=== PATIENT | female | born 1975 | race Caucasian/White ===

== ENCOUNTER 2021-11-21 13:34 | Emergency (ER) | payer SELFPAY ==
[~2021-11-21] VITALS: Ht 175.3 cm; Wt 144.7 kg
[2021-11-21 14:48] LABS: BACTERIA,URINE FEW /HPF (0-FEW)
[2021-11-21 14:49] LABS: WBC,URINE 0 /HPF (0-4)
--- NOTE | 2021-11-21 14:59 | RAD ---
EXAM: Chest, 2 views. HISTORY: Chest pain. Cough. COMPARISON: None. FINDINGS: 2 views of the chest are obtained. There is no infiltrate, pleural effusion or pneumothorax . There is a prominent cardiac silhouette. IMPRESSION: No acute pulmonary finding. Electronically signed by: Brenda Rodriguez MD (11/21/2021 2:56 PM) [id number]
[2021-11-21 15:18] LABS: INFLUENZA A PATIENT NEGATIVE (NEGATIVE); INFLUENZA B PATIENT NEGATIVE (NEGATIVE)
[2021-11-21 15:25] LABS: BASO # 0.1 x10^3/uL (0.0-0.2); BASO % 1 % (0-3); EOS # 0.1 x10^3/uL (0.0-0.7); EOS % 1 % (0-3); HEMATOCRIT 28.5 % (36.0-47.0); HEMOGLOBIN 9.1 g/dL (12.0-15.5); LYMPH # 1.1 x10^3/uL (1.0-4.8); LYMPH % 14 % (24-48); MEAN CORPUSCULAR HEMOGLOBIN 26 pg (25-35); MEAN CORPUSCULAR HGB CONC 32 g/dL (31-37); MEAN CORPUSCULAR VOLUME 82 fL (79-100); MONO # 0.7 x10^3/uL (0.0-1.1); MONO % 9 % (0-9); NEUT % 75 % (31-73); PLATELET COUNT 144 x10^3/uL (140-400); RED BLOOD COUNT 3.48 x10^6/uL (3.50-5.40); RED CELL DISTRIBUTION WIDTH 21.4 % (11.5-14.5)
[2021-11-21 15:32] LABS: CALCIUM 8.6 mg/dL (8.5-10.1); CREATININE 0.9 mg/dL (0.6-1.0); GFR 67.4; POTASSIUM 3.4 mmol/L (3.5-5.1)
[2021-11-21 15:38] LABS: ALBUMIN 2.9 g/dL (3.4-5.0); ALBUMIN/GLOBULIN RATIO 0.7 (1.0-1.7); TOTAL BILIRUBIN 4.8 mg/dL (0.2-1.0); TOTAL PROTEIN 7.1 g/dL (6.4-8.2)
[2021-11-21 16:05] LABS: FECAL OB PT NEGATIVE (NEG)
[2021-11-21 16:42] LABS: ANISOCYTOSIS MOD; HYPOCHROMIA SLIGHT; PLT ESTIMATE ADEQUATE (ADEQUATE)
[2021-11-21] MEDS ORDERED: IOHEXOL 300 MG/ML 100ML VIAL. IV ONE (17:00)
[2021-11-21] MEDS ORDERED: CONTRAST GIVEN. MC PRN (17:00)
[2021-11-21] MEDS ORDERED: IOHEXOL 240 MG/ML 50ML VIAL. PO ONE (17:00)
[2021-11-21 17:26] LABS: ACETAMIN < 2 mcg/ml (10-30)
--- NOTE | 2021-11-21 18:10 | RAD ---
EXAM: CT Abdomen and Pelvis with IV contrast CLINICAL HISTORY: Rectal bleeding, abdominal pain, history gastric bypass COMPARISON: none TECHNIQUE: Helical CT of the abdomen and pelvis was performed following the administration of intrave nous contrast. Axial, coronal and sagittal reformatted images were generated. PQRS compliance statement - One or more of the following individualized dose reduction techniques wer e utilized for this study: 1. Automated exposure control 2. Adjustment of the mA and/or kV according to patient size 3. Use of iterative reconstruction technique FINDINGS: Lower Chest: Small right and trace left pleural effusions. Abdomen and Pelvis: Hepatic hypoattenuation, fatty liver. Cholecystectomy clips are seen. No biliary duct dilatation. Spl een is unremarkable. Adrenal glands are normal. Pancreas is unremarkable. Symmetric nephrograms. No focal renal lesion. No hydronephrosis. No hydroureter. Bladder is unremarka ble. Uterus is unremarkable. A 9.1 x 6.2 cm left adnexal lesion is seen. An 8.2 x 5.1 cm right adnexal les ion is seen. No abdominal or pelvic ascites. No abdominal or pelvic lymphadenopathy. Thickening of the right colonic wall with right pericolonic infiltration. No small or large bowel dil atation. No bowel obstruction. Appendix is not seen. Changes of gastric bypass are seen. Bones: No aggressive osseous lesion. IMPRESSION: 1. Thickening of the right colonic wall with pericolonic infiltration possibly infectious or inflamm atory colitis. Following resolution of the acute process, colonoscopy is recommended as underlying co lonic mass can also have this appearance. 2. Bilateral adnexal masses are seen and can be further assessed by ultrasound. 3. Changes of gastric bypass are seen. 4. Hepatic hypoattenuation with fatty liver. Electronically signed by: Michelet Carter MD (11/21/2021 6:07 PM) [facility]
--- NOTE | 2021-11-21 18:13 | PHYS DOC ---
Past Medical History Additional Past Medical Histor: FIBROMYALGIA Past Surgical History: Cholecystectomy, , Gastric Bypass, Knee Replac ement Smoking Status: Never Smoker Alcohol Use: Heavy Additional Information: PATIENT STATES, "EVERY COUPLE OF WEEKS I WILL DRINK A 1/2 OF A LITER IN 2 WEEKS." General Adult EDM: Chief Complaint: FLU SYMPTOM HPI: HPI: Patient is a 46-year-old female who presents to the emergency department complaining of chest pains, abdominal pains, nausea, headaches, cough, congestion, body aches, fevers and chills at home. Patient reports she has been vaccinated for the COVID-19 virus and flu this season. Patient reports a past medical history of fibromyalgia, gastric bypass surgery 2010, gallbladder removal, bilateral knee replacements, C-sections, sinus surgery. Patient states that she was told by other people that have had gastric bypass that she may have a rupture with her surgery, patient states that she noticed blood in her stool 2 days ago. Patient reports her home meds are Zyrtec, Prevacid, and Zofran. Patient states she does not have a primary care physician as she moved here from [place] 4 months ago. Patient denies diaphoretic episodes, syncopal or near syncopal episodes, denies homicidal suicidal ideations, denies dizziness. Pat ient denies other physical complaints or physical concerns. Review of Systems: Review of Systems: 14 body systems of review of systems have been reviewed. See HPI for pertinent positives and negative responses, otherwise all other systems are negative, nonpertinent or noncontributory. Constitutional: Negative except as outlined in HPI above. Skin: Negative except as outlined in HPI above. Eyes: Negative except as outlined in HPI above. HENT: Negative except as outlined in HPI above. Respiratory: Negative except as outlined in HPI above. Cardiovascular: Negative except as outlined in HPI above. GI: Negative except as outlined in HPI above. : Negative except as outlined in HPI above. Musculoskeletal: Negative except as outlined in HPI above. Integument: Negative except as outlined in HPI above. Neurologic: Negative except as outlined in HPI above. Endocrine: Negative except as outlined in HPI above. Lymphatic: Negative except as outlined in HPI above. Psychiatric: Negative except as outlined in HPI above. Heart Score: C/O Chest Pain: Yes HEART Score for Chest Pain: HEART Score for Chest Pain Response (Comments) Value History Slighlty/Non-Suspicious 0 ECG Normal 0 Age >45 - < 65 1 Risk Factors >3 Risk Factors or Hx CAD 2 Troponin < Normal Limit 0 Total 3 Risk Factors: Risk Factors: DM, Current or recent (<one month) smoker, HTN, HLP, family history of CAD, obesity. Risk Scores: Score 0 - 3: 2.5% MACE over next 6 weeks - Discharge Home Score 4 - 6: 20.3% MACE over next 6 weeks - Admit for Clinical Observation Score 7 - 10: 72.7% MACE over next 6 weeks - Early Invasive Strategies Current Medications: Current Medications Medications (Trade) Dose Ordered Sig/Agusto Start Time Stop Time Status Last Admin Dose Admin Info (CONTRAST GIVEN -- Rx MONITORING) 1 each PRN DAILY PRN 11/21/21 17:00 11/23/21 16:59 Iohexol (Omnipaque 240 Mg/ml) 50 ml 1X ONCE 11/21/21 17:00 11/21/21 17:01 DC 11/21/21 17:00 50 ML Iohexol (Omnipaque 300 Mg/ml) 75 ml 1X ONCE 11/21/21 17:00 11/21/21 17:01 DC 11/21/21 17:00 75 ML Allergies: Allergies: Allergies Coded Allergies Type Severity Reaction Last Updated Verified Sulfa (Sulfonamide Antibiotics) Allergy Unknown 11/21/21 Yes cephalexin Allergy Unknown 11/21/21 Yes Physical Exam: PE: Constitutional: Well developed, well nourished, no acute distress, non-toxic appearance. 46-year-old female in no apparent distress. HENT: Normocephalic, atraumatic. Eyes: Conjunctiva normal, no discharge. Neck: Normal range of motion, no stridor. Cardiovascular: No cyanosis appreciated, distal cap refill less than 2 seconds. Regular rate and rhythm, heart sounds S1-S2 auscultation. Lungs & Thorax: Patient is in no respiratory distress, no audible adventitious lung sounds appreciated. Lung sounds clear to auscultation all lung prado, normal work of breathing. Abdomen: Generalized tenderness to palpation all quadrants, old well-healed surgical scars, round, patient BMI 47.1. Skin: Warm, dry, no erythema, no rash. Back: No tenderness, no deformities. Extremities: No tenderness, no cyanosis, no clubbing, ROM intact, no edema. Neurologic: Alert and oriented X 3, normal motor function, normal sensory function, no focal deficits noted. Psychologic: Affect normal, judgement normal, mood normal. Current Patient Data: Labs: Laboratory Tests Test 11/21/21 14:05 11/21/21 14:11 11/21/21 14:50 11/21/21 15:14 Urine Collection Type Unknown Urine Color (Auto) Yellow Urine Turbidity Hazy Urine pH (Auto) 5.5 (<5.0-8.0) Urine Specific [place] 1.010 (1.000-1.030) Urine Protein (Auto) Negative mg/dL (Negative) Urine Glucose (Auto)(UA) Negative mg/dL (Negative) Urine Ketones (Auto) Negative mg/dL (Negative) Urine Blood (Auto) Trace (Negative) Urine Nitrite Negative (Negative) Urine Bilirubin (Auto) Negative (Negative) Urine Urobilinogen (Auto) >12 mg/dL (Normal) Urine Leukocyte Esterase (Auto) Negative (Negative) Urine RBC 1-2 /HPF (0-2) Urine WBC 0 /HPF (0-4) Urine Squamous Epithelial Cells Few /LPF Urine Bacteria Few /HPF (0-FEW) Urine Mucus Slight /LPF POC Urine HCG, Qualitative Hcg negative (Negative) Influenza Type A Antigen Negative (NEGATIVE) Influenza Type B Antigen Negative (NEGATIVE) SARS-CoV-2 Antigen (Rapid) Negative (NEGATIVE) White Blood Count 8.0 x10^3/uL (4.0-11.0) Red Blood Count 3.48 x10^6/uL (3.50-5.40) L Hemoglobin 9.1 g/dL (12.0-15.5) L Hematocrit 28.5 % (36.0-47.0) L Mean Corpuscular Volume 82 fL (79-100) Mean Corpuscular Hemoglobin 26 pg (25-35) Mean Corpuscular Hemoglobin Concent 32 g/dL (31-37) Red Cell Distribution Width 21.4 % (11.5-14.5) H Platelet Count 144 x10^3/uL (140-400) Neutrophils (%) (Auto) 75 % (31-73) H Lymphocytes (%) (Auto) 14 % (24-48) L Monocytes (%) (Auto) 9 % (0-9) Eosinophils (%) (Auto) 1 % (0-3) Basophils (%) (Auto) 1 % (0-3) Neutrophils # (Auto) 6.0 x10^3/uL (1.8-7.7) Lymphocytes # (Auto) 1.1 x10^3/uL (1.0-4.8) Monocytes # (Auto) 0.7 x10^3/uL (0.0-1.1) Eosinophils # (Auto) 0.1 x10^3/uL (0.0-0.7) Basophils # (Auto) 0.1 x10^3/uL (0.0-0.2) Platelet Estimate Adequate (ADEQUATE) Hypochromasia Slight Anisocytosis Mod Sodium Level 139 mmol/L (136-145) Potassium Level 3.4 mmol/L (3.5-5.1) L Chloride Level 102 mmol/L (98-107) Carbon Dioxide Level 27 mmol/L (21-32) Anion Gap 10 (6-14) Blood Urea Nitrogen 5 mg/dL (7-20) L Creatinine 0.9 mg/dL (0.6-1.0) Estimated GFR (Cockcroft-Gault) 67.4 BUN/Creatinine Ratio 6 (6-20) Glucose Level 115 mg/dL (70-99) H Calcium Level 8.6 mg/dL (8.5-10.1) Total Bilirubin 4.8 mg/dL (0.2-1.0) H Aspartate Amino Transferase (AST) 121 U/L (15-37) H Alanine Aminotransferase (ALT) 53 U/L (14-59) Alkaline Phosphatase 103 U/L (46-116) Troponin I High Sensitivity 9 ng/L (4-50) Total Protein 7.1 g/dL (6.4-8.2) Albumin 2.9 g/dL (3.4-5.0) L Albumin/Globulin Ratio 0.7 (1.0-1.7) L Lipase 134 U/L (73-393) Acetaminophen Level < 2 mcg/ml (10-30) L Acetaminophen Last Dose Date Unknown Acetaminophen Last Dose Time Unknown Test 11/21/21 15:40 Stool Occult Blood Negative (NEG) Laboratory Tests 11/21/21 15:14 Laboratory Tests 11/21/21 15:14 Vital Signs: Vital Signs Date Time Temp Pulse Resp B/P (MAP) Pulse Ox O2 Delivery O2 Flow Rate FiO2 11/21/21 13:35 98.5 97 18 195/81 (119) 97 Room Air 98.5 EKG: EKG: EKG performed at 1413 by ED nursing staff shows a normal sinus rhythm without other ectopy, heart rate 94 bpm, TN interval point 158, QTc interval 0.508, no acute STEMI, no ACS, no acute ischemia appreciated, EKG interpreted by ED attending physician Dr. Bartholomew. Radiology/Procedures: Radiology/Procedures: REASON: Chest pain with cough PROCEDURE: CHEST PA & LATERAL EXAM: Chest, 2 views. HISTORY: Chest pain. Cough. COMPARISON: None. FINDINGS: 2 views of the chest are obtained. There is no infiltrate, pleural effusion or pneumothorax. There is a prominent cardiac silhouette. IMPRESSION: No acute pulmonary finding. Electronically signed by: Brenda Rodriguez MD (11/21/2021 2:56 PM) [id number] REASON: Rectal bleeding, abdominal pain, history gastric bypass PROCEDURE: CT ABD PELV W/ORAL&IV CONTRAST EXAM: CT Abdomen and Pelvis with IV contrast CLINICAL HISTORY: Rectal bleeding, abdominal pain, history gastric bypass COMPARISON: none TECHNIQUE: Helical CT of the abdomen and pelvis was performed following the administration of intravenous contrast. Axial, coronal and sagittal reformatted images were generated. PQRS compliance statement - One or more of the following individualized dose reduction techniques were utilized for this study: 1. Automated exposure control 2. Adjustment of the mA and/or kV according to patient size 3. Use of iterative reconstruction technique FINDINGS: Lower Chest: Small right and trace left pleural effusions. Abdomen and Pelvis: Hepatic hypoattenuation, fatty liver. Cholecystectomy clips are seen. No biliary duct dilatation. Spleen is unremarkable. Adrenal glands are normal. Pancreas is unremarkable. Symmetric nephrograms. No focal renal lesion. No hydronephrosis. No hydroureter. Bladder is unremarkable. Uterus is unremarkable. A 9.1 x 6.2 cm left adnexal lesion is seen. An 8.2 x 5.1 cm right adnexal lesion is seen. No abdominal or pelvic ascites. No abdominal or pelvic lymphadenopathy. Thickening of the right colonic wall with right pericolonic infiltration. No small or large bowel dilatation. No bowel obstruction. Appendix is not seen. [place] nges of gastric bypass are seen. Bones: No aggressive osseous lesion. IMPRESSION: 1. Thickening of the right colonic wall with pericolonic infiltration possibly infectious or inflammatory colitis. Following resolution of the acute process, colonoscopy is recommended as underlying colonic mass can also have this appearance. 2. Bilateral adnexal masses are seen and can be further assessed by ultrasound. 3. Changes of gastric bypass are seen. 4. Hepatic hypoattenuation with fatty liver. Electronically signed by: Michelet Puente MD (11/21/2021 6:07 PM) [facility] REASON: Evaluate adnexal masses PROCEDURE: PELVIS W/TV Pelvic ultrasound to include transabdominal and transvaginal imaging 11/21/2021 CLINICAL HISTORY: Adnexal mass seen on CT scan from earlier today. TECHNIQUE: Using the distended urinary bladder as a sonographic window, a real- time ultrasound examination of the pelvis was performed. Additionally in an attempt to better evaluate the uterus and adnexa, a transvaginal ultrasound study was performed. Multiple images were obtained. FINDINGS: The uterus is small and difficult to evaluate due to the presence of bilateral adnexal masses. It measures 5.7 x 4.7 x 2.2 cm in longitudinal, transverse, and AP dimensions. No focal abnormality of the uterus is definitely seen. The endometrial echo complex is difficult to visualize. It does not appear thickened on the patients CT scan. Oval-shaped anechoic structures with internal echoes are seen throughout both ovaries. These are consistent with hemorrhagic cysts or endometriomas. The right one measures 8.1 x 5.0 x 4.7 cm in size. The left one measures 8.7 x 5.9 x 5.1 cm in size. Normal color-flow to both ovaries is seen. A small amount of free fluid is seen. IMPRESSION: Probable hemorrhagic cysts versus endometriomas are seen involving both ovaries as discussed above. Electronically signed by: Marcial Yanez MD (11/21/2021 8:42 PM) [id number] DICTATED and SIGNED BY: MICHELET PUENTE MD DATE: 11/21/211758 Course & Med Decision Making: Course & Med Decision Making Pertinent Labs and Imaging studies reviewed. (See chart for details) 46-year-old female, vital signs reviewed, presents emergency department with multiple concerns. Will order blood pressure/cardiac/continuous pulse ox monitoring, insert saline lock, EKG, PA lateral chest, CBC, CMP, lipase, rapid flu and COVID testing, high-sensitivity troponin I, urinalysis assay, urine test, fecal occult blood. Fecal occult blood is negative, the patient's urine is not infected, she is not , high-sensitivity troponin I is negative, EKG is nonconcerning, PA lateral chest is nonconcerning, serum labs are nonconcerning. Will order CT abdomen pelvis with oral and IV contrast to evaluate abdominal discomfort. CT abdomen pelvis concerning for colitis infectious versus inflammatory process, also concerning for adnexal masses, radiologist recommended pelvic sono study. Patient is complaining of anxiety, asking for a 1 mg Ativan oral dose, will also give Tessalon Perles for cough. Pelvis sonogram concerning for ovarian cyst. Discussed findings with patient, strict follow-up with GI specialist, will give recommendation on discharge instructions, will start on Cipro/Flagyl regimen for colitis, discussed medications and side effects with patient, also discussed with patient strict follow-up with [employer]ICER for further evaluation of ovarian cyst. Will give recommendation for [facility] clinics/primary care physician offices for patient to establish primary care since patient reports she recently moved here from [place]. Discussed return to ER precautions and concerns, patient gave verbal understanding of and is amenable to ED discharge planning. Discussed with the patient all findings and diagnostic testing as well as the need to follow-up with their primary care provider for further evaluation and treatment or return to the ED if any new or worsening symptoms. Strict return precautions were also discussed at length, the patient voiced understanding and agreement with the discharge planning. The patient was nontoxic in appearance, in no apparent distress, and hemodynamically stable at the time of disposition. Molly Disclaimer: Molly Disclaimer: This electronic medical record was generated, in whole or in part, using a voice recognition dictation system. Departure Departure Impression: Primary Impression: Colitis Additional Impressions: Abnormal pelvic ultrasound Cough Viral syndrome Disposition: HOME / SELF CARE / HOMELESS Condition: GOOD Referrals: SUNNY ACOSTA MD, SCOTT S MD Patient Instructions: Colitis Additional Instructions: You were seen today in the emergency department for generalized aches and pains, abdominal pains, chest pains, concerns about your gastric bypass, cough. Your EKG and chest x-ray did not show any concerning findings, your lab work did not show any concerning findings that would require immediate hospitalization or intervention by a hospital specialist. Your urine was not infected. There was no blood in your stool. The CT scan did show concerning findings of an infection in your colon, as we discussed I am starting you on an antibiotic regimen, please take these medications as directed until complete. I have also writing a short regimen prescription for cough medication. As we discussed consider changing your Zyrtec allergy medication to Claritin to see if this helps with your allergy symptoms. Your flu and COVID tests were negative today. You did do show concerning findings of ovarian cysts, please follow-up with an [employer] OFFICER for ongoing investigation and evaluation of your ovarian cyst. You may consider seeing an [employer] PL[employer] OFFICER specialist Dr. Sunny Acosta. I have provided his in formation attached to this document. After your antibiotic regimen is complete, please consider making an appointment to see a GI specialist. You may consider seeing Dr. Meléndez, I have attached his information to this document. You reported that you recently moved into the area from [place], I have attached a list of area healthcare providers and clinics for you to establish primary health care with, please make an appointment tomorrow to be seen soon. Thank you for visiting our Emergency Department. It was a pleasure taking care of you today in the emergency department and we appreciate you trusting us with your care. If any additional problems come up don't hesitate to return to visit us. Please follow up with your primary care provider so they can plan additional care if needed and know about the problem that you had. If symptoms worsen come back to the Emergency Department. Any concerning symptoms that start such as chest pain, shortness of air, weakness or numbness on one side of the body, running high fevers or any other concerning symptoms return to the ER. [facility] [address] [place] [address] [facility] [address] [place] [address] [facility] [address] [place] [address] [facility] [address] [place] [address] [facility] [address] [place] [address] [facility] [address] [place] [address] [place] [address] [place] [address] [facility] [address] [place] [address] [facility] [employer] [address] [place] [address] [facility] [address] [place] [address] Scripts Ciprofloxacin Hcl (CIPRO) 500 Mg Tablet 1 TAB PO BID for bowel infection for 10 Days, #20 TAB 0 Refills Prov: SUNNY PHILLIPS APRN 11/21/21 Metronidazole (METRONIDAZOLE) 500 Mg Tablet 1 TAB PO TID for bowel infection for 10 Days, #30 TAB 0 Refills Prov: SUNNY PHILLIPS APRN 11/21/21 Benzonatate (BENZONATATE) 100 Mg Capsule 100 MG PO TID PRN PRN for COUGH, #15 CAP 0 Refills Prov: SUNNY PHILLIPS APRN 11/21/21 SUNNY PHILLIPS APRN November 21, 2021 18:13
[2021-11-21] MEDS ORDERED: BENZONATATE 100 MG CAPSULE. PO ONE (19:30)
--- NOTE | 2021-11-21 19:52 | EKG ---
[facility] [address] [place] [address] Test Date: 2021-11-21 Test Time: 14:10:03 Pat Name: DUGLAS MOTA Department: Room: Gender: F [employer]rier: : 1975 Requested By: HAYLEY PHILLIPS Order Number: [id number] Reading MD: Emil Pennington Measurements Intervals Britt Rate: 95 P: 59 NE: 146 QRS: 21 QRSD: 88 T: 31 QT: 322 QTc: 408 Interpretive Statements SINUS RHYTHM NORMAL ECG RI6.02 No previous ECG available for comparison Electronically Signed On 11-23-2021 14:51:20 CDT by Emil Pennington
--- NOTE | 2021-11-21 20:44 | RAD ---
Pelvic ultrasound to include transabdominal and transvaginal imaging 11/21/2021 CLINICAL HISTORY: Adnexal mass seen on CT scan from earlier today. TECHNIQUE: Using the distended urinary bladder as a sonographic window, a real-time ultrasound examin ation of the pelvis was performed. Additionally in an attempt to better evaluate the uterus and adnex a, a transvaginal ultrasound study was performed. Multiple images were obtained. FINDINGS: The uterus is small and difficult to evaluate due to the presence of bilateral adnexal mass es. It measures 5.7 x 4.7 x 2.2 cm in longitudinal, transverse, and AP dimensions. No focal abnormali ty of the uterus is definitely seen. The endometrial echo complex is difficult to visualize. It does not appear thickened on the patients CT scan. Oval-shaped anechoic structures with internal echoes are seen throughout both ovaries. These are cons istent with hemorrhagic cysts or endometriomas. The right one measures 8.1 x 5.0 x 4.7 cm in size. Th e left one measures 8.7 x 5.9 x 5.1 cm in size. Normal color-flow to both ovaries is seen. A small am ount of free fluid is seen. IMPRESSION: Probable hemorrhagic cysts versus endometriomas are seen involving both ovaries as discus sed above. Electronically signed by: Marcial Yanez MD (11/21/2021 8:42 PM) [id number]
[2021-11-21 21:20] VITALS: BP 133/72
[2021-11-21] MEDS ORDERED: CIPR500T94 PO (21:31)
[2021-11-21] MEDS ORDERED: BENZ-8 PO (21:31)
[2021-11-21] MEDS ORDERED: METR-34 PO (21:31)
== END 2021-11-21 21:57 | disposition home or self-care (01) ==
LOC: ER 13:34
DX: K52.9 Noninfective gastroenteritis and colitis, unspecified (principal); B34.9 Viral infection, unspecified; Z20.822 Contact with and (suspected) exposure to COVID-19; R05.9 Cough, unspecified; R93.3 Abnormal findings on diagnostic imaging of other parts of digestive tract
CPT/HCPCS: 36415; 71046; 74177; 76830; 76856; 80053; 80329; 81001; 81025; 82274; 83690; 84484; 85025; 87428; 93005; 99285; Q9966; Q9967; G0480